=== PATIENT | male | born 1975 | race Caucasian/White ===

== ENCOUNTER 2022-01-02 12:58 | Inpatient (IN) | payer OTHER, BC ==
[2022-01-02] MEDS ORDERED: Ondansetron PF 4 MG/2 ML Vial ONE (14:01)
[2022-01-02] MEDS ORDERED: Morphine 4 MG/ML VIAL ONE ×2 (14:01→15:58)
[2022-01-02] MEDS ORDERED: Dexamethasone 10 MG/ML VIAL ONE (15:58)
[2022-01-02] MEDS ORDERED: Promethazine HCl 25 MG/ML VIAL IM PRN (16:22)
[2022-01-02] MEDS ORDERED: hydrALAZINE 20 MG/ML VIAL SLOW IVP PRN (16:22)
[2022-01-02] MEDS ORDERED: traMADol HCl 50 MG TAB PO PRN (16:22)
[2022-01-02] MEDS ORDERED: Ondansetron PF 4 MG/2 ML Vial IVP PRN (16:22)
[2022-01-02] MEDS ORDERED: Diazepam 5 MG TAB ONE (17:03)
[2022-01-02 17:34] LABS: Anion Gap 18 mmol/L (10-20); BUN (Urea Nitrogen) 12 mg/dL (8.9-20.6); Calc. Creatinine Clearance 0 mL/min (70-130); Calcium 8.6 mg/dL (7.8-10.44); Carbon Dioxide 21 mmol/L (22-29); Chloride 97 mmol/L (98-107); Estimated GFR 94; Glucose 393 mg/dL (70-105); Potassium 4.3 mmol/L (3.5-5.1); Sodium 132 mmol/L (136-145)
[2022-01-02] MEDS ORDERED: Acetaminophen 325 MG TAB PO SCH (18:00)
[2022-01-02] MEDS ORDERED: Lorazepam 2 MG/ML VIAL SLOW IVP SCH (19:00)
[2022-01-02] MEDS ORDERED: Lorazepam 2 MG/ML VIAL SLOW IVP PRN (19:19)
[2022-01-02] MEDS: Dexamethasone 4 mg/ml Vial SLOW IVP SCH ×2 (20:12→23:43)
[2022-01-02] MEDS: traMADol HCl 50 MG TAB PO PRN (20:13)
[2022-01-02] MEDS: Famotidine 20 MG TAB PO SCH (20:13)
[2022-01-02] MEDS: Gabapentin 300 MG CAP PO SCH (20:14)
[2022-01-02] MEDS: Lisinopril 5 MG TAB PO SCH (20:14)
[2022-01-02] MEDS: Sodium Chloride 0.9% 1,000 ML IV SCH (20:16)
[2022-01-02] MEDS ORDERED: Pregabalin 50 MG CAP PO SCH (21:00)
[2022-01-02] MEDS: Acetaminophen 500 MG TAB PO SCH (23:43)
[2022-01-03 04:45] VITALS: BMI 41.8
[2022-01-03] MEDS: Acetaminophen 500 MG TAB PO SCH (05:23)
[2022-01-03] MEDS: Dexamethasone 4 mg/ml Vial SLOW IVP SCH ×3 (05:23→18:22)
[2022-01-03] MEDS: traMADol HCl 50 MG TAB PO PRN (05:24)
[2022-01-03] MEDS: Sodium Chloride 0.9% 1,000 ML IV SCH (05:29)
[2022-01-03 06:12] LABS: #Eosinphils 0.1 thou/uL (0.0-0.7); #Lymphocytes 1.5 thou/uL (1.20-3.40); #Monocytes 0.1 thou/uL (0.11-0.59); #Neutrophils 12.1 thou/uL (1.40-6.50); %Basophils 0.2 % (0.0-1.0); %Eosinophils 0.7 % (0.0-10.0); %Lymphocytes 11.1 % (21.0-51.0); %Monocytes 0.8 % (0.0-10.0); %Neutrophils 87.2 % (42.0-75.0); Hemoglobin 15.7 g/dL (14.0-18.0); Mean Corpuscular Hemoglobin 32.2 pg (27.0-31.0); Mean Corpuscular Volume 91.9 fL (78.0-98.0); Mean Platelet Volume 7.6 fL (7.4-10.4); Platelet Count 206 thou/uL (130-400); RBC Distribution Width 11.5 % (11.5-14.5); Red Blood Cell (RBC) Count 4.89 mill/uL (4.70-6.10); White Blood Cell (WBC) Count 13.8 thou/uL (4.8-10.8)
[2022-01-03 06:20] LABS: Hemoglobin A1c 10.1 % (4.0-6.0)
[2022-01-03 06:21] LABS: Prothrombin Time 13.3 sec (12.0-14.7)
[2022-01-03 06:31] LABS: Phosphorus 3.9 mg/dL (2.3-4.7)
[2022-01-03 06:33] LABS: Anion Gap 19 mmol/L (10-20); BUN (Urea Nitrogen) 13 mg/dL (8.9-20.6); Calc. Creatinine Clearance 198 mL/min (70-130); Calcium 9.1 mg/dL (7.8-10.44); Carbon Dioxide 18 mmol/L (22-29); Chloride 98 mmol/L (98-107); Estimated GFR 108; Glucose 409 mg/dL (70-105); Magnesium 2.1 mg/dL (1.6-2.6); Potassium 4.6 mmol/L (3.5-5.1); Sodium 130 mmol/L (136-145)
[2022-01-03] MEDS ORDERED: Dextrose 5% in Water 1,000 ML IV PRN (07:00)
[2022-01-03] MEDS ORDERED: Dextrose 50% Abboject 50 ML SYRINGE IVP PRN (07:00)
[2022-01-03 07:27] LABS: SARS-CoV-2 NAA Rapid Test Not Detected (NotDetected)
[2022-01-03] MEDS ORDERED: Insulin Glargine 30 UNITS/0.3 ML VIAL SC SCH ×5 (09:00→21:00)
[2022-01-03] MEDS: Famotidine 20 MG TAB PO SCH ×2 (09:06→20:55)
[2022-01-03] MEDS: Lisinopril 5 MG TAB PO SCH ×2 (09:06→20:56)
[2022-01-03] MEDS: Gabapentin 300 MG CAP PO SCH (09:06)
[2022-01-03] MEDS: Escitalopram Oxalate 10 mg Tablet PO SCH ×2 (09:06→20:56)
[2022-01-03] MEDS: Pregabalin 50 MG CAP PO SCH ×2 (12:39→20:56)
[2022-01-03] MEDS: Acetaminophen/Codeine 30-300mg Tablet PO SCH ×2 (12:40→18:21)
[2022-01-03] MEDS: HumaLOG 300 UNITS/3 ML VIAL SC PRN ×3 (12:40→20:57)
[2022-01-03] MEDS ORDERED: Ibuprofen 200 MG TAB PO SCH (14:00)
[2022-01-03] MEDS ORDERED: Ketorolac Tromethamine 30 MG/ML VIAL IVP SCH (17:15)
[2022-01-04] MEDS: Acetaminophen/Codeine 30-300mg Tablet PO SCH ×5 (00:54→23:28)
[2022-01-04] MEDS: Ketorolac Tromethamine 30 MG/ML VIAL IVP SCH ×4 (00:55→17:07)
[2022-01-04] MEDS: Dexamethasone 4 mg/ml Vial SLOW IVP SCH ×4 (00:56→17:02)
[2022-01-04] MEDS: HumaLOG 300 UNITS/3 ML VIAL SC PRN ×4 (05:34→21:02)
[2022-01-04] MEDS: Escitalopram Oxalate 10 mg Tablet PO SCH ×2 (08:56→21:01)
[2022-01-04] MEDS: Lisinopril 5 MG TAB PO SCH ×2 (08:57→21:01)
[2022-01-04] MEDS: Pregabalin 50 MG CAP PO SCH ×3 (08:58→21:01)
[2022-01-04] MEDS: Famotidine 20 MG TAB PO SCH ×2 (08:58→21:01)
[2022-01-04] MEDS: Insulin Glargine 30 UNITS/0.3 ML VIAL SC SCH ×2 (08:59→21:36)
[2022-01-04] MEDS ORDERED: Insulin Glargine 30 UNITS/0.3 ML VIAL SC SCH ×4 (09:00→21:00)
[2022-01-04] MEDS ORDERED: Calcium Carbonate 500 MG ChewTAB PO PRN (13:28)
[2022-01-04 23:28] VITALS: TEMP 97.8
[2022-01-05] MEDS: Acetaminophen/Codeine 30-300mg Tablet PO SCH (05:58)
[2022-01-05] MEDS: HumaLOG 300 UNITS/3 ML VIAL SC PRN (05:59)
[2022-01-05 07:41] VITALS: BP 128/84
[2022-01-05] MEDS: Pregabalin 50 MG CAP PO SCH (07:59)
[2022-01-05] MEDS: Lisinopril 5 MG TAB PO SCH (07:59)
[2022-01-05] MEDS: Famotidine 20 MG TAB PO SCH (07:59)
[2022-01-05] MEDS: Insulin Glargine 30 UNITS/0.3 ML VIAL SC SCH (08:02)
[2022-01-05] MEDS: Escitalopram Oxalate 10 mg Tablet PO SCH (08:03)
== END 2022-01-05 09:30 | disposition home or self-care (01) | DRG 52 ==
LOC: ERS 12:58 → SURG A 16:22
PROVIDERS: ADMIT Surgery; ATTEND Surgery
DX: S14.125A Central cord syndrome at C5 level of cervical spinal cord, initial encounter (principal); Z68.41 Body mass index [BMI] 40.0-44.9, adult; M50.322 Other cervical disc degeneration at C5-C6 level; Z20.822 Contact with and (suspected) exposure to COVID-19; M48.02 Spinal stenosis, cervical region; I10 Essential (primary) hypertension; M19.90 Unspecified osteoarthritis, unspecified site; G62.9 Polyneuropathy, unspecified; E66.01 Morbid (severe) obesity due to excess calories; E11.65 Type 2 diabetes mellitus with hyperglycemia; F17.210 Nicotine dependence, cigarettes, uncomplicated; W01.0XXA Fall on same level from slipping, tripping and stumbling without subsequent striking against object, initial encounter; Y93.39 Activity, other involving climbing, rappelling and jumping off; Y92.34 Swimming pool (public) as the place of occurrence of the external cause; Z90.49 Acquired absence of other specified parts of digestive tract; Z79.899 Other long term (current) drug therapy; Z79.4 Long term (current) use of insulin; Z88.0 Allergy status to penicillin
CPT/HCPCS: 36415; 36416; 72125; 72128; 72131; 80048; 83036; 83735; 84100; 85025; 85610; 85730; 96374; 96375; 96376; J1100; J1815; J1885; J2270; J2405; J7050; U0002

== ENCOUNTER 2022-02-14 14:08 | Outpatient (CLI) | payer BC ==
[2022-02-14 15:00] LABS: Hemoglobin 15.1 g/dL (13.5-17.5); Mean Corpuscular Hemoglobin 31.7 pg (27.0-33.0); Mean Corpuscular Volume 88.1 fl (81.2-95.1); Mean Platelet Volume 9.8 fl (7.4-10.4); Platelet Count 209 10x3/uL (150-450); RBC Distribution Width 12.2 % (11.5-14.5); Red Blood Cell (RBC) Count 4.77 10x6/uL (4.32-5.72); White Blood Cell (WBC) Count 9.7 10x3/uL (3.5-10.5)
[2022-02-14 15:27] LABS: Anion Gap 13 mmol/L (10-20); BUN (Urea Nitrogen) 13 mg/dL (8.9-20.6); Calc. Creatinine Clearance 0 mL/min (70-130); Calcium 9.2 mg/dL (7.8-10.44); Carbon Dioxide 26 mmol/L (22-29); Chloride 100 mmol/L (98-107); Estimated GFR 105; Glucose 320 mg/dL (70-105); Potassium 4.3 mmol/L (3.5-5.1); Sodium 135 mmol/L (136-145)
== END 2022-02-14 14:09 | disposition home or self-care (01) ==
LOC: LABBT 14:08
PROVIDERS: ATTEND Neurological Surgery
DX: Z01.818 Encounter for other preprocedural examination (principal); M47.12 Other spondylosis with myelopathy, cervical region; Z20.822 Contact with and (suspected) exposure to COVID-19
CPT/HCPCS: 80048; 85027; 87811; 93005; 93010

== ENCOUNTER 2022-02-19 06:01 | Observation (INO) | payer BC ==
[2022-02-15 11:50] VITALS: BMI 35.9
[2022-02-19] MEDS ORDERED: Thrombin 5000 UNITS/5 ML VIAL ONE (06:30)
[2022-02-19] MEDS ORDERED: Insulin Regular 300 UNITS/3 ML VIAL ONE (06:53)
[2022-02-19] MEDS ORDERED: Levofloxacin 500 mg/D5W 100 ml Premix Bag ONE (07:04)
[2022-02-19] MEDS ORDERED: Morphine 2 MG/ML VIAL SLOW IVP PRN (07:18)
[2022-02-19] MEDS ORDERED: Promethazine 25 MG TAB PO PRN (07:18)
[2022-02-19] MEDS ORDERED: diphenhydrAMINE 50 MG/ML VIAL IVP PRN (07:18)
[2022-02-19] MEDS ORDERED: Cyclobenzaprine 10 MG TAB PO PRN (07:18)
[2022-02-19] MEDS ORDERED: Acetaminophen/Codeine 30-300mg Tablet PO PRN ×2 (07:18)
[2022-02-19] MEDS ORDERED: Ondansetron PF 4 MG/2 ML Vial IVP PRN (07:18)
[2022-02-19] MEDS ORDERED: Milk Of Magnesia 30 ML UDCUP PO PRN (07:18)
[2022-02-19] MEDS ORDERED: traMADol HCl 50 MG TAB PO PRN (07:18)
[2022-02-19] MEDS ORDERED: Mag-Al 1200 mg/1200 mg/30 ML UDCUP PO PRN (07:18)
[2022-02-19] MEDS ORDERED: Dextrose 50% Abboject 50 ML SYRINGE SLOW IVP PRN (07:21)
[2022-02-19] MEDS ORDERED: Dextrose 5% in Water 1,000 ML IV PRN (07:21)
[2022-02-19] MEDS ORDERED: Midazolam HCl 2 mg/2 ml Vial ONE (07:44)
[2022-02-19] MEDS ORDERED: fentaNYL Citrate/PF 100 MCG/2 ML SYRINGE ONE (07:44)
[2022-02-19] MEDS ORDERED: Clindamycin/D5W 900 mg/50 ml Premix Bag ONE (08:00)
[2022-02-19] MEDS ORDERED: Rocuronium Bromide 10 MG/ML (10ML VIAL) ONE (08:38)
[2022-02-19] MEDS ORDERED: Neostigmine Methylsulfate 3 MG/3 ML SYRINGE ONE (08:38)
[2022-02-19] MEDS ORDERED: ePHEDrine 50 MG/ML VIAL ONE (08:38)
[2022-02-19] MEDS ORDERED: Glycopyrrolate 0.2 MG/ML 5 ML SYRINGE ONE (08:38)
[2022-02-19] MEDS ORDERED: Dexamethasone 20 MG/5 ML VIAL ONE (08:38)
[2022-02-19] MEDS ORDERED: Ondansetron PF 4 MG/2 ML Vial ONE (08:38)
[2022-02-19] MEDS ORDERED: Succinylcholine 200 MG/10 ml SYRINGE FS ONE (08:38)
[2022-02-19] MEDS ORDERED: PROPOFOL 200 MG/20 ML VIAL ONE (08:38)
[2022-02-19] MEDS ORDERED: Phenylephrine 10 MG/ML VIAL ONE (08:38)
[2022-02-19] MEDS ORDERED: Promethazine HCl 25 MG/ML VIAL IVPB PRN (10:12)
[2022-02-19] MEDS ORDERED: Ketorolac Tromethamine 30 MG/ML VIAL IVP PRN (10:12)
[2022-02-19] MEDS ORDERED: Ondansetron HCl/PF 4 MG/2 ML Vial IVP PRN (10:12)
[2022-02-19] MEDS ORDERED: Promethazine HCl 25 MG/ML VIAL IM PRN (10:12)
[2022-02-19] MEDS ORDERED: HYDROmorphone 2 MG/ML VIAL SLOW IVP PRN (10:12)
[2022-02-19] MEDS ORDERED: Fentanyl 100 MCG/2 ML VIAL ONE ×2 (10:43→11:14)
[2022-02-19] MEDS: Gabapentin 300 MG CAP PO SCH ×4 (13:39→21:18)
[2022-02-19] MEDS: Pregabalin 50 MG CAP PO SCH ×3 (13:41→21:19)
[2022-02-19] MEDS: Lisinopril 5 MG TAB PO SCH (13:43)
[2022-02-19] MEDS: Clindamycin/D5W 900 MG in Premix Bag 1 BAG IVPB SCH ×2 (13:43→21:18)
[2022-02-19] MEDS: Escitalopram Oxalate 10 mg Tablet PO SCH (13:44)
[2022-02-19] MEDS: Sodium Chloride 0.9% 1,000 ML IV SCH (13:45)
[2022-02-19] MEDS: HumaLOG 300 UNITS/3 ML VIAL SC PRN ×2 (16:45→21:20)
[2022-02-19] MEDS: Insulin Glargine 30 UNITS/0.3 ML VIAL SC SCH (21:18)
[2022-02-20] MEDS: Sodium Chloride 0.9% 1,000 ML IV SCH (01:00)
[2022-02-20 05:53] LABS: #Eosinphils 0.1 thou/uL (0.0-0.7); #Lymphocytes 2.5 thou/uL (1.20-3.40); #Monocytes 0.9 thou/uL (0.11-0.59); #Neutrophils 10.5 thou/uL (1.40-6.50); %Basophils 0.1 % (0.0-1.0); %Eosinophils 0.8 % (0.0-10.0); %Lymphocytes 17.7 % (21.0-51.0); %Monocytes 6.4 % (0.0-10.0); %Neutrophils 74.9 % (42.0-75.0); Hemoglobin 14.5 g/dL (14.0-18.0); Mean Corpuscular HGB CONC 34.7 g/dL (32.0-36.0); Mean Corpuscular Hemoglobin 31.9 pg (27.0-31.0); Mean Corpuscular Volume 92.1 fL (78.0-98.0); Mean Platelet Volume 7.6 fL (7.4-10.4); Platelet Count 217 thou/uL (130-400); RBC Distribution Width 11.7 % (11.5-14.5); Red Blood Cell (RBC) Count 4.54 mill/uL (4.70-6.10)
[2022-02-20] MEDS ORDERED: Tamsulosin HCl 0.4 MG CAP PO SCH (06:00)
[2022-02-20 06:09] LABS: Anion Gap 16 mmol/L (10-20); BUN (Urea Nitrogen) 13 mg/dL (8.9-20.6); Calc. Creatinine Clearance 172 mL/min (70-130); Calcium 9.3 mg/dL (7.8-10.44); Carbon Dioxide 24 mmol/L (22-29); Chloride 98 mmol/L (98-107); Estimated GFR 109; Glucose 374 mg/dL (70-105); Potassium 4.4 mmol/L (3.5-5.1); Sodium 134 mmol/L (136-145)
[2022-02-20] MEDS: Clindamycin/D5W 900 MG in Premix Bag 1 BAG IVPB SCH (06:36)
[2022-02-20] MEDS: HumaLOG 300 UNITS/3 ML VIAL SC PRN (06:37)
[2022-02-20] MEDS: Escitalopram Oxalate 10 mg Tablet PO SCH (08:13)
[2022-02-20] MEDS: Gabapentin 300 MG CAP PO SCH (08:14)
[2022-02-20] MEDS: Pregabalin 50 MG CAP PO SCH (08:15)
[2022-02-20] MEDS: Lisinopril 5 MG TAB PO SCH (08:15)
[2022-02-20 08:16] VITALS: BP 123/79
[2022-02-20 08:17] VITALS: TEMP 97.9
[2022-02-20] MEDS: Insulin Glargine 30 UNITS/0.3 ML VIAL SC SCH (08:19)
== END 2022-02-20 10:00 | disposition home or self-care (01) ==
LOC: SDC 06:01 → SURG B 07:18
PROVIDERS: ADMIT Neurological Surgery; ATTEND Neurological Surgery
PROC: 0RG20A0 Fusion of 2 or more Cervical Vertebral Joints with Interbody Fusion Device, Anterior Approach, Anterior Column, Open Approach (ICD-10-PCS; principal; 2022-02-19)
DX: S14.125A Central cord syndrome at C5 level of cervical spinal cord, initial encounter (principal); M47.12 Other spondylosis with myelopathy, cervical region; M47.22 Other spondylosis with radiculopathy, cervical region; M48.02 Spinal stenosis, cervical region; I10 Essential (primary) hypertension; E78.5 Hyperlipidemia, unspecified; F17.210 Nicotine dependence, cigarettes, uncomplicated; E11.65 Type 2 diabetes mellitus with hyperglycemia; E87.1 Hypo-osmolality and hyponatremia; D72.829 Elevated white blood cell count, unspecified; E66.9 Obesity, unspecified; Z68.35 Body mass index [BMI] 35.0-35.9, adult; Z79.4 Long term (current) use of insulin; Z79.899 Other long term (current) drug therapy; Z88.0 Allergy status to penicillin; W19.XXXA Unspecified fall, initial encounter; Y93.89 Activity, other specified
CPT/HCPCS: 36415; 36416; 76000; 80048; 85025; C1713; J1100; J1815; J1956; J2250; J2370; J2405; J2704; J3010; J3490

== ENCOUNTER 2022-03-14 12:36 | Outpatient (CLI) | payer BC | END 2022-03-14 12:37 | disposition home or self-care (01) | LOC: TBSIIMAG 12:36 | PROVIDERS: ATTEND Neurological Surgery | DX: M47.12 Other spondylosis with myelopathy, cervical region (principal); M47.22 Other spondylosis with radiculopathy, cervical region; Z98.1 Arthrodesis status | CPT/HCPCS: 72040 ==